=== PATIENT | female | born 1935 | race Caucasian/White ===

== ENCOUNTER → 2018-11-14 | Outpatient (CLI) | payer MEDICARE, OTHER ==
[~2018-11-14] MED LIST: ALBU2.5V8 INH; AMLO1TAB12 PO; ASPI-630 PO; ATOR40TA59 PO; CONTRAST GIVEN. MC PRN; IOHEXOL 240 MG/ML 50ML VIAL. PO ONE; IOHEXOL 300 MG/ML 100ML VIAL. IV ONE; LISI1TAB5 PO
--- NOTE | 2018-11-14 15:59 | KCIC ---
EXAM: Carotid Doppler sonogram. HISTORY: Left carotid bruit. Right arm numbness. TECHNIQUE: Ricardo scale and color Doppler sonographic evaluation of the neck with spectral waveform analysis was performed and static images are submitted for review. FINDINGS: RIGHT: The peak systolic velocity within the common carotid artery is 60 cm/sec. The peak systolic velocity within the internal carotid artery is 289 cm/sec and the end diastolic velocity within the internal carotid artery is 63 cm/sec. The ICA/CCA ratio is 4.3. Grayscale images demonstrate calcified plaquing at the right carotid bulb extending to the origin of the internal carotid artery, resulting in grayscale stenosis and obscuration of the lumen. LEFT: The peak systolic velocity within the common carotid artery is 46 cm/sec. The peak systolic velocity within the internal carotid artery is 109 cm/sec and the end diastolic velocity within the internal carotid artery is 35 cm/sec. The ICA/CCA ratio is 1.6. Grayscale images demonstrate calcified plaquing at the carotid bulb without clear grayscale stenosis. There is antegrade flow within both vertebral arteries. IMPRESSION: 1. >70% stenosis along the right proximal internal carotid artery. PQRS Compliance Statement - Stenosis calculations for CT, MR and conventional angiography are based upon measurement of the distal ICA diameter in accordance with the NASCET methodology. Stenosis calculations for carotid ultrasound studies are derived from validated velocity criteria which are known to correlate with the NASCET methodology. Electronically signed by: Lorenzo Carr MD (11/14/2018 3:56 PM) [facility]
--- NOTE | 2018-11-14 16:51 | KCIC ---
EXAM: Abdomen and pelvis CT with intravenous contrast. HISTORY: Periumbilical pain. TECHNIQUE: Computed tomographic images of the abdomen and pelvis were obtained following the administration of 89 cc Omnipaque 300 intravenous contrast. Multiplanar reformatting was performed. *One or more of the following individualized dose reduction techniques were utilized for this examination: 1. Automated exposure control. 2. Adjustment of the mA and/or kV according to patient size. 3. Use of iterative reconstruction technique. COMPARISON: None. FINDINGS: Evaluation of the lower thorax demonstrates lingular and right middle lobe and bilateral basilar pleural parenchymal scarring and atelectasis. There is a somewhat mosaic attenuation of the lower lungs favoring small airways disease. No consolidated infiltrate or pleural effusion is seen. There is a tiny fat-containing left diaphragmatic hernia. The heart is normal in size. There is a tiny suspected cyst within the right hepatic lobe. No suspicious liver lesion is seen. The gallbladder, pancreas, spleen and adrenal glands are unremarkable. There are small right and tiny left renal cysts. There is a punctate nonobstructing right renal stone. There is no appendicitis. There is sigmoid diverticulosis. There is no convincing diverticulitis. There is pelvic floor relaxation with prolapse of loops of small bowel and the rectosigmoid colon. The uterus is surgically absent. The bladder is unremarkable. There is nonspecific mesenteric stranding. No pathologically enlarged lymph node is seen. There are degenerative changes throughout the spine. There is scoliosis and grade 1 anterolisthesis of L5 on S1. IMPRESSION: 1. Sigmoid diverticulosis. 2. Nonspecific mesenteric stranding. 3. Bilateral renal cysts and tiny nonobstructing right renal stone. 4. Tiny suspected right hepatic cyst. 4. Pelvic floor relaxation with associated prolapse of loops of small and large bowel. Electronically signed by: Ankita Fletcher MD (11/14/2018 4:48 PM) [facility]
== END | disposition home or self-care (01) ==
LOC: KCIC CT 12:54
PROVIDERS: ATTEND Family Medicine
DX: I65.21 Occlusion and stenosis of right carotid artery (principal); R91.8 Other nonspecific abnormal finding of lung field; J98.11 Atelectasis; K44.9 Diaphragmatic hernia without obstruction or gangrene; N28.1 Cyst of kidney, acquired; N20.0 Calculus of kidney; K57.30 Diverticulosis of large intestine without perforation or abscess without bleeding; M41.87 Other forms of scoliosis, lumbosacral region; M43.17 Spondylolisthesis, lumbosacral region; I10 Essential (primary) hypertension; Z79.01 Long term (current) use of anticoagulants
CPT/HCPCS: 74177; 93880; Q9966; Q9967